=== PATIENT | female | born 1965 | race Caucasian/White ===

== ENCOUNTER 2021-03-04 10:10 | Observation (INO) | payer MEDICARE, SELFPAY ==
--- NOTE | ~2021-03-04 | CT_ITS ---
EXAMINATION: CT ABDOMEN AND PELVIS WITHOUT CONTRAST CLINICAL INFORMATION: Left lower quadrant pain COMPARISON: None TECHNIQUE: Multidetector volumetric imaging was performed from the superior aspect of the liver through the pubic symphysis. Sagittal and coronal reformatted images were obtained on the technologist's workstation. Intravenous contrast administration was attempted although there was an injection malfunction This CT examination was performed using dose optimization techniques as appropriate, variously including the following: *Automated exposure control *Adjustment of mA and/or kV according to patient size (this includes techniques or standardized protocols for targeted exams where dose is matched to indication/reason for exam; i.e. extremities or head) *Use of iterative reconstruction technique DLP: 1778 mGy-cm FINDINGS: LUNG BASES: The visualized lung bases are unremarkable. LIVER, GALLBLADDER, AND BILIARY TREE: The liver is normal in size, shape, and attenuation. No focal hepatic lesion or biliary ductal dilatation is present. The gallbladder is surgically absent. PANCREAS: Unremarkable. SPLEEN: There is a simple fluid density cyst which is partially exophytic at the superior aspect of the spleen. Contour irregularity with hypoattenuation at the anterior margin of the spleen which could represent smaller cysts or a hemangioma.. ADRENAL GLANDS: Unremarkable. KIDNEYS AND URETERS: The kidneys are normal in size, shape, and attenuation. No hydronephrosis, hydroureter, or calculi seen. No perinephric stranding. Really excreted contrast from the minimal IV contrast within the nondilated renal pelves and ureters. BLADDER: Unremarkable. GASTROINTESTINAL TRACT: Severe sigmoid diverticulosis and scattered diverticula throughout the remainder of the large bowel. In the left pelvis, adjacent to the left seminal vesicle, there is mild inflammatory stranding adjacent to region of prominent diverticulosis which likely represents mild diverticulitis. No obstruction. No abscess. ABDOMINAL WALL: No significant hernia is appreciated. LYMPH NODES: Normal. VASCULAR: Unremarkable. PELVIC VISCERA: Unremarkable. OSSEOUS STRUCTURES: Moderate degenerative disc disease at T12-L1 through L to L3. Advanced facet arthrosis at the lower lumbar levels. There is a posterior disc bulge or protrusion with peripheral calcification resulting in moderate-severe central stenosis at T12-L1. CT/CT abdomen pelvis wo con IMPRESSION: Probable mild diverticulitis in the deep left pelvis. Extensive sigmoid diverticulosis. No obstruction or abscess. Splenic cyst and additional foci of hypoattenuation that are too small to characterize, possibly representing additional cysts or hemangioma. It is inadequately evaluated with this study. Ultrasound or MRI could be considered.
[2021-03-04 10:14] VITALS: BP 153/90; PULSE 91; RESP 18; TEMP 36.9; O2SAT 100; BMI 40.6
--- NOTE | 2021-03-04 11:15 | ED_ITS ---
HPI - Abdominal Pain General Chief Complaint: Abdominal Pain Stated Complaint: abd pain Time Seen by Provider: 03/04/21 11:14 Source: patient Mode of arrival: ambulatory Limitations: no limitations History of Present Illness HPI narrative: 55-year-old female presents for 3 days of left lower quadrant pain. She is visiting family in the area for Thanksgiving, she is from [place]. She has a history of diverticulitis, states this feels like diverticulitis. She has had nausea but no vomiting. She is also had mild diarrhea today. Yesterday she had normal bowel movements with no dark tarry or bloody stools. No dysuria, no chest pain, no shortness of breath, no fevers, no cough. Patient states her pain is 7/10 and radiates to her left back and across her abdomen. Patient has had 4 or 5 episodes of diverticulitis in the past, the last 1 3 years ago. Patient states she has had to be hospitalized twice for diverticulitis. 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 Patient is also anticoagulated due to antiphospholipid syndrome. Surgical history includes cholecystectomy 2 Caesarean sections, partial hysterectomy. MD elicited complaint: abdominal pain Pertinent past history: diverticulitis Onset (ago): day(s) (3) Pain Consistency: constant Location: LLQ Severity: severe Pain scale (0-10): 7 Quality: cramping and stabbing Radiation: RLQ and back Relieving factors: nothing Associated symptoms: nausea and diarrhea Related Data Hx Last Menstrual Period: hysterectomy Allergies Allergy/AdvReac Type Severity Reaction Status Date / Time hydromorphone [From Dilaudid] Allergy Hypertensio Verified 03/04/21 10:20 n NSAIDS (Non-Steroidal Allergy Chest Pain Verified 03/04/21 10:19 Anti-Inflamma warfarin [From Coumadin] Allergy Nose Bleed Verified 03/04/21 10:20 Review of Systems Constitutional: Denies body ache(s), Denies chills, Denies fatigue, Denies fever(s), Denies headache(s), Denies malaise and Denies weakness Eyes: Denies diplopia Denies vertigo, Denies dizziness, Denies otalgia, Denies headache(s), Denies mouth pain, Denies post nasal drip, Denies sinus pain, Denies sinus pressure, Denies sore throat and Denies throat swelling Cardiovascular: Denies chest pain, Denies syncope, Denies leg edema, Denies lightheadedness, Denies Loss of Consciousness, Denies palpitations and Denies dyspnea Respiratory: Denies chest congestion, Denies cough and Denies dyspnea Gastrointestinal: Reports abdominal pain, Denies hematochezia, Denies constipation, Reports diarrhea, Reports nausea and Denies vomiting Genitourinary: Denies dysuria, Denies pelvic pain, Denies urinary incontinence and Denies urinary hesitancy Musculoskeletal: Reports no additional musculoskeletal complaints Skin/Breast: Denies rash Denies confusion, Denies vertigo, Denies dizziness, Denies syncope, Denies headache(s) and Denies weakness Psychiatric: Denies anxiety, Denies confusion and Denies depression Endocrine: Denies fatigue and Denies palpitations Allergic/Immunologic: Denies throat swelling Physical Exam Vital Signs: Vital Signs: Last Vital Signs Temp 98.4 F 03/04/21 10:14 Pulse 72 03/04/21 14:02 Resp 20 03/04/21 14:02 BP 145/78 H 03/04/21 14:02 Pulse Ox 98 03/04/21 14:02 Body Mass Index 40.6 Const: General: alert, awake and acute distress (d/t pain) moderate; No confu hoa Nutritional Appearance: obese morbidly obese Orientat ion/consciousness: patient oriented x3 and No confusion Limitations: no limitations HENMT: Head: Yes normal to inspection, Yes normocephalic and Yes atraumatic Ears: hearing grossly normal bilaterally, external ears normal, TM's normal bilaterally and EAC's normal General nose exam: Normal external nose present Face and sinus: Yes normal facial exam and Yes sinuses nontender Mouth: Normal oral and palatal mucosa present Throat: Yes posterior oropharynx normal Eyes: Conjunctivae: conjunctivae normal Pupils: Equal, round and reactive pupils present EOM: EOMs intact bilaterally Neck: Neck: Yes full ROM, Yes no lymphadenopathy and Yes supple Resp: Effort & Inspection: normal respiratory effort and able to speak in complete sentences Auscultation: clear to auscultation bilaterally, no crackles, no rales, no rhonchi and no wheezes Cardio: Rate: regular rate Rhythm: regular rhythm Heart sounds: S1 normal heart sound present and S2 normal heart sound present GI: Inspection: Yes Abdominal panniculus present, Yes obesity and Yes striae Palpation (GI): Soft to palpation, Tenderness to palpation present (GI) in the LLQ and in the RLQ, Guarding due to palpation present (GI) in the LLQ and not rigid Percussion: Yes normal to percussion Auscultation: normal bowel sounds Skin: General skin exam: no rashes or lesions noted Neuro: General: patient oriented x3 and No confusion Cranial nerves: Yes Equal, round and reactive pupils present Extrem: General: Yes normal to inspection and Yes full ROM Psych: Appearance: grossly normal Affect: normal affect and Anxious affect present Attitude: cooperative Thought process: Normal thought process present Course Course Course Narrative: 55-year-old female with a history of diverticulitis who is immunosuppressed and anticoagulated presents for 3 days of left lower quadrant pain. On exam, patient is in distress due to pain. Patient is tender and guarding in left lower quadrant. Patient is obese with a large pannus. Her vital signs are stable. Will get labs, lipase, urine, start morphine and Zofran, CT abdomen pelvis. Reevaluation(s) Reevaluation #1: CT/CT abdomen pelvis wo con IMPRESSION: Probable mild diverticulitis in the deep left pelvis. Extensive sigmoid diverticulosis. No obstruction or abscess. ? Splenic cyst and additional foci of hypoattenuation that are too small to characterize, possibly representing additional cysts or hemangioma. It is inadequately evaluated with this study. Ultrasound or MRI could be considered.? Labs are unremarkable, COVID negative. Due to patient's level of pain, and not being able to eat or drink, will get patient admitted for IV antibiotics and pain control. MDM - Abdominal Pain Lab Data Result diagrams: 03/04/21 12:12 03/04/21 14:52 Labs: Lab Results 03/04/21 03/04/21 03/04/21 Range/Units 12:12 13:16 14:52 WBC 9.1 (4.8-10.8) X10*3/uL RBC 5.19 (4.20-5.50) X10*6/uL Hgb 13.4 (12.0-16.0) g/dl Hct 43.0 (37.0-47.0) % MCV 82.9 (80.0-98.0) fL MCH 25.8 L (27.0-33.0) pg MCHC 31.2 (31.0-35.0) g/dl RDW 15.9 (11.0-16.0) % Plt Count 382 (160-400) X10*3/uL MPV 9.3 L (9.4-12.3) fL Immature Gran % (Auto) 0.3 (0.0-0.4) % Neut % (Auto) 69.3 (45-73) % Lymph % (Auto) 25.1 (20-40) % [place] % (Auto) 3.6 (2-11) % Eos % (Auto) 1.2 (0-4) % Baso % (Auto) 0.5 (0-2) % Lymph # (Auto) 2.3 (1.2-4.9) X10*3/uL [place] # (Auto) 0.3 (0.1-1.2) X10*3/uL Eos # (Auto) 0.1 (0.0-0.4) X10*3/uL Baso # (Auto) 0.1 (0.0-0.2) X10*3/uL Abs Immat Gran (auto) 0.03 (0.00-0.03) X10*3/uL Absolute Neuts (auto) 6.3 (2.0-8.3) x10*3/uL Absolute Nucleated RBC 0.000 (0.0-0.012) X10*3/uL Nucleated RBC % (auto) 0.0 (0.0-0.2) /100WBC Sodium 142 (135-145) mmol/L Potassium 3.9 (3.3-5.1) mmol/L Chloride 108 (96-108) mmol/L Carbon Dioxide 23 (22-29) mmol/L Anion Gap 15 (12-20) BUN 9 (9-16) mg/dL Creatinine 0.76 (0.5-1.4) mg/dL Estim Creat Clear Calc 132.8 Estimated GFR > 60 Random Glucose 101 (60-115) mg/dL Calcium 9.6 (8.4-10.2) mg/dL Total Bilirubin 1.0 (0.0-1.0) mg/dL AST 11 (5-31) U/L ALT 13 (0-31) U/L Alkaline Phosphatase 59 (39-117) U/L Total Protein 7.6 (6.5-8.0) g/dL Albumin 4.1 (3.5-5.0) g/dL Lipase 20 (8-78) U/L COVID-19 (NAYE) Negative (Negative) COVID-19 Clin Com See Note Discharge Plan Discharge Clinical Impression: Diverticulitis Patient Disposition: Admitted As Inpatient [facility] Past Medical History [facility] Narrative: Anti phospholipid syndrome Rheumatoid arthritis Osteomyelitis of skull Diverticulitis Cholecystectomy Caesarean section Partial hysterectomy Medical History Arthritis Diverticula of colon Hyperlipemia Hx Last Menstrual Period: hysterectomy Social History Social History Advance Directives: No Advance Directives Information Provided: No Patient : No
[2021-03-04 12:19] LABS: Basophils Absolute Auto 0.1 X10*3/uL (0.0-0.2); Basophils Percent Auto 0.5 % (0-2); Eosinophils Absolute Auto 0.1 X10*3/uL (0.0-0.4); Eosinophils Percent Auto 1.2 % (0-4); Hemoglobin 13.4 g/dl (12.0-16.0); Imm Gran Abs Auto 0.03 X10*3/uL (0.00-0.03); Imm Gran Pct Auto 0.3 % (0.0-0.4); Lymphocytes Absolute Auto 2.3 X10*3/uL (1.2-4.9); Lymphocytes Percent Auto 25.1 % (20-40); MANUAL DIFF FLAG NO; Mean Corpuscular HGB Conc 31.2 g/dl (31.0-35.0); Mean Corpuscular Hemoglobin 25.8 pg (27.0-33.0); Mean Corpuscular Volume 82.9 fL (80.0-98.0); Mean Platelet Volume 9.3 fL (9.4-12.3); Monocytes Absolute Auto 0.3 X10*3/uL (0.1-1.2); Monocytes Percent Auto 3.6 % (2-11); Neutrophils Absolute Auto 6.3 x10*3/uL (2.0-8.3); Neutrophils Percent Auto 69.3 % (45-73); Platelet Count 382 X10*3/uL (160-400); Red Blood Count 5.19 X10*6/uL (4.20-5.50); Red Cell Distribution Width 15.9 % (11.0-16.0); White Blood Count 9.1 X10*3/uL (4.8-10.8)
[2021-03-04] MEDS: ondansetron HCL 4 MG/2 ML VIAL IVPUSH (12:35)
[2021-03-04] MEDS: Morphine Sulfate 4 MG/ML CARTRIDGE IVPUSH ×2 (12:35→14:22)
[2021-03-04] MEDS: 0.9 % Sodium Chloride 1,000 ML 999 ML IV (12:35)
[2021-03-04 13:53] LABS: COVID-19 Test Negative (Negative)
[2021-03-04 14:02] VITALS: BP 145/78; PULSE 72; RESP 20; O2SAT 98
[2021-03-04 15:19] LABS: Alanine Aminotransferase 13 U/L (0-31); Albumin Level 4.1 g/dL (3.5-5.0); Alkaline Phosphatase 59 U/L (39-117); Anion Gap 15 (12-20); Aspartate Amino Transferase 11 U/L (5-31); Blood Urea Nitrogen 9 mg/dL (9-16); Calcium 9.6 mg/dL (8.4-10.2); Carbon Dioxide 23 mmol/L (22-29); Chloride 108 mmol/L (96-108); Creatinine Clr Calc Pharmacy 132.8; Estimated Glomerular Filt Rate > 60; Glucose Random 101 mg/dL (60-115); Lipase 20 U/L (8-78); Potassium 3.9 mmol/L (3.3-5.1); Sodium 142 mmol/L (135-145); Total Protein 7.6 g/dL (6.5-8.0)
--- NOTE | 2021-03-04 18:04 | PM.IMHP ---
History of Present Illness Date of Service: 03/04/21 Chief Complaint: Abdominal Pain 55-year-old female with history of rheumatoid arthritis, antiphospholipid antibody syndrome on fondaparinux, history of diverticulitis and has had multiple episodes in the past, she also has history of C diff that is recurrence and has had a 2 fecal implant in the past. She is presently visiting the area from [place]. She relates that she has not been feeling well since tense given day and has been experiencing left upper quadrant area pain that is reminiscent of a past diverticulitis episode. At worst she rates the pain at about 7/10 she has not been having any diarrhea and had normal bowel movement yesterday. Workup included normal WBC, CT of the abdomen and pelvis shows extensive diverticulosis with a mild left-sided diverticulitis. Review of Systems Review of Systems: Gen: no fever Resp: no sob, no cough CV: no chest, no LEHMAN, no leg edema GI: No n/v, + abd pain Neuro: No confusion Yes all other systems are reviewed and are negative [facility] Medical History (Updated 03/04/21 @ 18:14 by John Hinkle MD) Arthritis Diverticula of colon Hyperlipemia Rheumatoid arthritis Thrombophilia due to antiphospholipid antibody Family History (Updated 03/04/21 @ 18:15 by John Hinkle MD) Mother Breast cancer CAD (coronary artery disease) Social History (Updated 03/04/21 @ 18:16 by John Hinkle MD) Alcohol intake: never Patient Tobacco Use Status: Never used Tobacco Advance Directives: No Advance Directives Information Provided: No Patient : No Meds Allergies Allergy/AdvReac Type Severity Reaction Status Date / Time hydromorphone [From Dilaudid] Allergy Hypertensio Verified 03/04/21 10:20 n NSAIDS (Non-Steroidal Allergy Chest Pain Verified 03/04/21 10:19 Anti-Inflamma warfarin [From Coumadin] Allergy Nose Bleed Verified 03/04/21 10:20 Active Medications: Current Medications Pharmacy Consult (Consult Rx Perform Med Rec) 1 each MISCELLANE ONCE PRN PRN Reason: Consult order Home Medications Medication Instructions Recorded Confirmed Last Taken Type colchicine 0.5 mg tablet 0.5 mg PO DAILY 03/04/21 03/04/21 Unknown History fluoxetine 40 mg capsule (Prozac) 40 mg PO BEDTIME 03/04/21 03/05/21 Unknown History fondaparinux 10 mg/0.8 mL 10 mg SUBCUT DAILY 03/04/21 03/04/21 Unknown History subcutaneous solution syringe (Arixtra) pantoprazole 40 mg tablet,delayed 40 mg PO BID 03/04/21 03/04/21 Unknown History release (Protonix) acetaminophen 325 mg tablet 650 mg PO Q6H PRN 03/05/21 03/05/21 Unknown History certolizumab pegol (Cimzia) 400 mg SUBCUT Q2W 03/05/21 03/05/21 03/01/21 History clonazepam 1 mg tablet 1 mg PO BEDTIME PRN 03/05/21 03/05/21 Unknown History diphenhydramine HCl 25 mg tablet 25 mg PO Q6H PRN 03/05/21 03/05/21 Unknown History Physical Exam Vital Signs and Narrative: Vital Signs: Last Vital Signs Temp 98.4 F 03/04/21 10:14 Pulse 72 03/04/21 14:02 Resp 20 03/04/21 14:02 BP 145/78 H 03/04/21 14:02 Pulse Ox 98 03/04/21 14:02 Body Mass Index 40.6 Const: Other: Constitutional: Alert, in no distress, overweight. Mental Status: Oriented to person, place and time. Eyes: Pupils are equal, round and reactive to light. Ear, Nose and Throat: Oropharynx clear, mucous membranes moist. Ears and nose without eformities. Trachea midline. Respiratory: Clear to auscultation. No wheezing, rales or rhonchi. Cardiovascular: S1 S2 regular. No murmurs, rubs or gallops. Gastrointestinal: Abdomen soft, left upper quadrant area tender, non-distended. Normal bowel sounds.? Neurologic: Cranial nerves II-XII grossly intact. No focal neurological deficits. Moves all extremities spontaneously.? Skin: No rashes or lesions.? Musculoskeletal: No cyanosis or clubbing. Psychiatric: Normal mood and affect? Results Labs CBC and Chem 7: 03/04/21 12:12 03/04/21 14:52 Labs: Laboratory Results - last 24 hr 03/04/21 03/04/21 03/04/21 12:12 13:16 14:52 MCV 82.9 MCH 25.8 L MCHC 31.2 RDW 15.9 Plt Count 382 MPV 9.3 L Immature Gran % (Auto) 0.3 Neut % (Auto) 69.3 Lymph % (Auto) 25.1 Jones % (Auto) 3.6 Eos % (Auto) 1.2 Baso % (Auto) 0.5 Lymph # (Auto) 2.3 Jones # (Auto) 0.3 Eos # (Auto) 0.1 Baso # (Auto) 0.1 Abs Immat Gran (auto) 0.03 Absolute Neuts (auto) 6.3 Absolute Nucleated RBC 0.000 Nucleated RBC % (auto) 0.0 Anion Gap 15 Estim Creat Clear Calc 132.8 Estimated GFR > 60 Random Glucose 101 Calcium 9.6 Total Bilirubin 1.0 AST 11 ALT 13 Alkaline Phosphatase 59 Total Protein 7.6 Albumin 4.1 Lipase 20 COVID-19 (NAYE) Negative COVID-19 Clin Com See Note Imaging Radiologist's Impressions: Impressions Abdomen/Pelvis CT 03/04/21 11:38 IMPRESSION: Probable mild diverticulitis in the deep left pelvis. Extensive sigmoid diverticulosis. No obstruction or abscess. Splenic cyst and additional foci of hypoattenuation that are too small to characterize, possibly representing additional cysts or hemangioma. It is inadequately evaluated with this study. Ultrasound or MRI could be considered. Assessment and Plan (1) Diverticulitis: Status: Acute 55-year-old female with history of rheumatoid arthritis, antiphospholipid antibody syndrome on fondaparinux, history of diverticulitis and has had multiple episodes in the past, she also has history of C diff that is recurrence and has had a 2 fecal implant in the past. She presents with abdominal pain and found to have mild diverticulitis 1/Mild diverticultis, started on Zosyn so will continue this and if better by tomorrow, will change to Flagyl and Augmentin, morphine for pain 2/Antiphospholipid antibody syndrome with thrombophilia, failed coumadin in the past, continue home dose of fondaparinux 3/rheumatoid arthritis (RA), continue home meds 4/ Quality Stroke Does the patient have a stroke diagnosis?: No VTE Prior VTE?: No VTE Risk Level:: Medical - moderate - high VTE Device Contraindication: Treatment Not Indicated VTE Drug Contraindication: N/A - Med Ordered
[2021-03-04] MEDS: oxyCODONE HCl Immed Release 5 MG TABLET 10 MG PO (18:23)
[2021-03-04] MEDS: Piperacillin Sodium/Tazobactam 4.5 GM in 0.9 % Sodium Chloride 100 ML IV (18:25)
[2021-03-04 19:35] LABS: Lactic Acid 1.9 mmol/L (0.5-2.0)
[2021-03-04 19:39] VITALS: BP 126/66; PULSE 76; RESP 16; TEMP 36.9; O2SAT 98
[2021-03-04] MEDS: Acetaminophen 325 MG TABLET 650 MG PO (19:50)
--- NOTE | 2021-03-04 20:17 | PC.NURSE ---
PT ambulated to bathroom with steady gait to provide urine sample. PT is resting comfortably in bed at this time. VSS. PT is awaiting a bed for admission
[2021-03-04] MEDS: Dextrose 5 % and 0.45 % NaCl 1,000 ML 100 ML IVCONT (20:19)
[2021-03-04 23:02] VITALS: RESP 16
[2021-03-04] MEDS: Morphine Sulfate 2 MG/ML CARTRIDGE IVPUSH (23:02)
--- NOTE | 2021-03-04 23:28 | PC.NURSE ---
PT med rec completed with PT at bed side.
[2021-03-04 23:53] LABS: Appearance Urine CLEAR; Color Urine YELLOW; Glucose Urine UA NEG (NEG); Leukocyte Esterase Urine NEG (NEG); Nitrite Urine NEG (NEG); UACC Culture Trigger NO; Urine Blood TRACE (NEG); Urine Ketones 5 MG/DL (NEG); Urine Protein NEG (NEG-TRACE)
[2021-03-04 23:59] LABS: Bacteria Urine TRACE /LPF; Squamous Epithelial Cell Urine 2+ /LPF; WBC Urine 0-2 /HPF (0-4)
[2021-03-05 00:24] VITALS: BP 127/57; PULSE 58; RESP 14; TEMP 36.9; O2SAT 99
--- NOTE | 2021-03-05 04:12 | PC.NURSE ---
PT requested home meds to help with sleep and anxiety. Hospitalist made aware that med rec was completed. Provider ordered a med for anxiety but PT has been sleeping.
[2021-03-05] MEDS: ondansetron HCL 4 MG/2 ML VIAL IVPUSH (06:27)
[2021-03-05] MEDS: Acetaminophen 325 MG TABLET 650 MG PO (06:27)
[2021-03-05] MEDS: Morphine Sulfate 2 MG/ML CARTRIDGE IVPUSH (06:28)
[2021-03-05] MEDS: Dextrose 5 % and 0.45 % NaCl 1,000 ML 100 ML IVCONT (06:36)
--- NOTE | 2021-03-05 07:46 | PHA.MEDREC ---
Pharmacy Consult ? Medication Reconciliation Pharmacy has reviewed the medication reconciliation completed by Scotty. Patient is reporting she take Clonazepam 1 mg at bedtime as needed instead of 2 mg. There is no record on her PDMP of this. OTC medication were not included in the medication list. [address], MichelleD
[2021-03-05] MEDS: Piperacillin Sodium/Tazobactam 3.375 GM in 0.9 % Sodium Chloride 50 ML IV (07:56)
[2021-03-05 07:58] VITALS: BP 139/94; PULSE 77; RESP 20; TEMP 36.9; O2SAT 98
[2021-03-05] MEDS: FLUoxetine HCl 20 MG CAPSULE 40 MG PO (08:56)
[2021-03-05] MEDS: metroNIDAZOLE 500 MG TABLET PO (08:56)
[2021-03-05] MEDS: Omeprazole 20 MG CAPSULE.DR PO (08:56)
[2021-03-05] MEDS: clonazePAM 1 MG TABLET PO (08:56)
--- NOTE | 2021-03-05 09:08 | P.DS_ITS ---
DS: Providers Provider Date of Service: 03/05/21 Date of admission: 03/04/21 18:25 Primary care physician: Unknown Physician DS: Diagnosis Discharge Diagnosis (1) Diverticulitis: Status: Acute DS: Summary Hospital Course Hospital Course: 55-year-old female with history of rheumatoid arthritis, antiphospholipid antibody syndrome on fondaparinux, history of diverticulitis and has had multiple episodes in the past, she also has history of C diff that is recurrence and has had a 2 fecal implant in the past.? She is presently visiting the area from [place].? She relates that she has not been feeling well since tense given day and has been experiencing left upper quadrant area pain that is reminiscent of a past diverticulitis episode.? At worst she rates the pain at about 7/10 she has not been having any diarrhea and had normal bowel movement yesterday.? Workup included normal WBC, CT of the abdomen and pelvis shows extensive diverticulosis with a mild left-sided diverticulitis. Hospital course: patient was admitted overnight and hydrated, given Zosyn and feels better, she is due to return to [place], she will be transitioned to oral Augmentin and Flagyl for total of 7 days and advised to see her PCP back home as soon as possibe. Presently afebrile, tolerating diet. Time Spent with Patient Time attestation: Total time spent providing and/or coordinating discharge services: Discharge coordination time: Greater than 30 minutes Quality: Stroke Does the patient have a stroke diagnosis?: No Physical Exam Vital Signs: Vital Signs: Last Vital Signs Temp 98.5 F 03/05/21 07:58 Pulse 77 03/05/21 07:58 Resp 20 03/05/21 07:58 BP 139/94 H 03/05/21 07:58 Pulse Ox 98 03/05/21 07:58 Body Mass Index 40.6 DS: Data Data Completed and Pending Labs on day of discharge: Laboratory Results - last 24 hr 03/04/21 03/04/21 03/04/21 12:12 13:16 14:52 WBC 9.1 RBC 5.19 Hgb 13.4 Hct 43.0 MCV 82.9 MCH 25.8 L MCHC 31.2 RDW 15.9 Plt Count 382 MPV 9.3 L Immature Gran % (Auto) 0.3 Neut % (Auto) 69.3 Lymph % (Auto) 25.1 [place] % (Auto) 3.6 Eos % (Auto) 1.2 Baso % (Auto) 0.5 Lymph # (Auto) 2.3 [place] # (Auto) 0.3 Eos # (Auto) 0.1 Baso # (Auto) 0.1 Abs Immat Gran (auto) 0.03 Absolute Neuts (auto) 6.3 Absolute Nucleated RBC 0.000 Nucleated RBC % (auto) 0.0 Sodium 142 Potassium 3.9 Chloride 108 Carbon Dioxide 23 Anion Gap 15 BUN 9 Creatinine 0.76 Estim Creat Clear Calc 132.8 Estimated GFR > 60 Random Glucose 101 Lactic Acid Calcium 9.6 Total Bilirubin 1.0 AST 11 ALT 13 Alkaline Phosphatase 59 Total Protein 7.6 Albumin 4.1 Lipase 20 Urine Color Urine Appearance Urine pH Ur Specific [place] Urine Protein Urine Glucose (UA) Urine Ketones Urine Blood Urine Nitrite Ur Leukocyte Esterase Urine RBC Urine WBC Ur Squamous Epith Cells Urine Bacteria COVID-19 (NAYE) Negative COVID-19 [facility] (EBTH) Com See Note 03/04/21 03/04/21 19:09 23:48 WBC RBC Hgb Hct MCV MCH MCHC RDW Plt Count MPV Immature Gran % (Auto) Neut % (Auto) Lymph % (Auto) [place] % (Auto) Eos % (Auto) Baso % (Auto) Lymph # (Auto) [place] # (Auto) Eos # (Auto) Baso # (Auto) Abs Immat Gran (auto) Absolute Neuts (auto) Absolute Nucleated RBC Nucleated RBC % (auto) Sodium Potassium Chloride Carbon Dioxide Anion Gap BUN Creatinine Estim Creat Clear Calc Estimated GFR Random Glucose Lactic Acid 1.9 Calcium Total Bilirubin AST ALT Alkaline Phosphatase Total Protein Albumin Lipase Urine Color YELLOW Urine Appearance CLEAR Urine pH 6.0 Ur Specific [place] 1.020 Urine Protein NEG Urine Glucose (UA) NEG Urine Ketones 5 Urine Blood TRACE Urine Nitrite NEG Ur Leukocyte Esterase NEG Urine RBC 1-4 Urine WBC 0-2 Ur Squamous Epith Cells 2+ Urine Bacteria TRACE COVID-19 (NAYE) COVID-19 [facility] (EBTH) Com Discharge Plan Discharge Anticipated Discharge Date/Time: 03/05/21 09:19 Patient Disposition: Home, Self-Care Referrals: Physician,Unknown J [Primary Care Provider] - 1 Week Discharge Medications: New metronidazole 500 mg tablet 500 mg PO Q12H Qty: 13 RF: 0 Continued fluoxetine [Prozac] 40 mg Capsule 40 mg PO BEDTIME RF: 0 pantoprazole [Protonix] 40 mg Tablet,Delayed Release (Dr/Ec) 40 mg PO BID RF: 0 colchicine 0.5 mg Tablet 0.5 mg PO DAILY RF: 0 fondaparinux [Arixtra] 10 mg/0.8 mL Syringe 10 mg SUBCUT DAILY RF: 0 acetaminophen 325 mg Tablet 650 mg PO Q6H PRN (Reason: Pain) RF: 0 clonazepam 1 mg Tablet 1 mg PO BEDTIME PRN (Reason: Insomnia) RF: 0 diphenhydramine HCl 25 mg Tablet 25 mg PO Q6H PRN (Reason: Allergy Symptoms) RF: 0 Cimzia 400 mg/2 mL (200 mg/mL x 2) Syringe Kit 400 mg SUBCUT Q2W RF: 0 Discharge Orders: Discharge Order (Routine); Ordered 03/05/21 Ordered By: John Hinkle Diet: advance to usual diet Activity on Discharge: As tolerated Stand Alone Forms: Patient Portal Discharge page Care Plan Goals: Full recovery from diverticulitis Health Concerns: diverticulitis Plan of Treatment: take Augmentin and Flagyl as recommended and follow up with your Doctor in a week, call for appointment Assessment: as above
--- NOTE | 2021-03-05 14:32 | MHC.CM.PN ---
CM MET WITH PT WHO REPORTS SHE LIVES IN [place] WITH HER AND IS CURRENTLY HERE VISITING SHE REPORTS SHE IS FULLY INDEPENDENT, USES NO DME AND NO HOME SERVICES PT REPORTS SHE HAS A PCP BACK HOME BUT DOES NOT REMEMBER THE NAME. PT DECLINES TO COMPLETE A HCP TODAY OBS NOTICE WAS DELIVERED PT REPORTS SHE HAS BOTH MEDICARE AND [place] COVERAGE PT REPORTS SHE IS A 100% DISABLED PT WILL DC HOME TODAY WITH NO SERVICES PRESENT TO TRANSPORT
== END 2021-03-05 09:47 | disposition home or self-care (01) ==
LOC: HO.ED 17:30 → HO.EDOVER 18:37
PROVIDERS: Physician Assistant; Admitting Provider Internal Medicine; Emergency Provider Emergency Medicine; Visit Provider Internal Medicine
DX: K57.92 Diverticulitis of intestine, part unspecified, without perforation or abscess without bleeding (principal); R10.32 Left lower quadrant pain; R11.0 Nausea; R19.7 Diarrhea, unspecified; M06.9 Rheumatoid arthritis, unspecified; D84.81 Immunodeficiency due to conditions classified elsewhere; E78.5 Hyperlipidemia, unspecified; M86.8X8 Other osteomyelitis, other site; D68.61 Antiphospholipid syndrome; E66.01 Morbid (severe) obesity due to excess calories; B96.89 Other specified bacterial agents as the cause of diseases classified elsewhere; Z68.41 Body mass index [BMI] 40.0-44.9, adult; Z20.822 Contact with and (suspected) exposure to COVID-19; Z94.89 Other transplanted organ and tissue status; Z90.49 Acquired absence of other specified parts of digestive tract; Z88.6 Allergy status to analgesic agent; Z88.8 Allergy status to other drugs, medicaments and biological substances; Z79.01 Long term (current) use of anticoagulants
CPT/HCPCS: 36415; 74176; 80053; 81001; 83605; 83690; 85025; 87635; 96361; 96365; 96366; 96372; 96375; 96376; 99218; 99284; 99285; J2270; J2405; J2543